=== PATIENT | female | born 1980 | race Caucasian/White ===

== ENCOUNTER → 2019-08-06 11:02 | Outpatient (CLI) | payer OTHER, SELFPAY ==
--- NOTE | ~2019-08-06 | DEXA_ITS ---
Bone Density Report Name: Anh Hair Age: 39 Sex: Female Ethnicity: White Date of : 1980 Indication: postmenopausal; hysterectomy; Referring Provider: Yariel, Behzad Torrez Study: Bone densitometry was performed. Exam Date: August 06, 2019 Accession number: [id number] Bone Density: Region BMD T-score Z-score Classification AP Spine (L1-L4) 0.797 -2.3 -2.1 Osteopenia Femoral Neck (Left) 0.649 -1.8 -1.5 Osteopenia Total Hip (Left) 0.621 -2.6 -2.5 Osteoporosis Femoral Neck (Right) 0.622 -2.0 -1.8 Osteopenia Total Hip (Right) 0.654 -2.4 -2.2 Osteopenia Total Hip Mean 0.638 -2.5 -2.4 Osteoporosis World Health Organization criteria for BMD impression classify patients as: Normal (T-score at or above -1.0), Osteopenia (T-score between -1.0 and -2.5), or Osteoporosis (T-score at or below -2.5). 10-year Fracture Risk: FRAX not reported because: Some T-score for Spine Total or Hip Total or Femoral Neck at or below -2.5 Clinical Information Provided by Patient: Has used the following medications: Vitamin D, Calcium, MTV Has the following medical conditions: Hysterectomy, RECENT STRESS FRACTURE OF FOOT, IBS BUT NO MEDS Patient maximum height was 67 Menopause Age: 31 Does not regularly consume dairy products Drinks caffeinated beverages Onset of menses at age 10 Number of children 1 Impression: The patient has osteoporosis, based on the Left Total Hip T-score. Discussion: HIGH RISK OF FRACTURE. BONE DENSITY IS UNDESIRABLY LOW AT ONE OR MORE SKELETAL SITES, CONSISTENT WITH OSTEOPOROSIS. ALSO, BONE DENSITY IS LOWER THAN EXPECTED FOR AGE AND SEX AT ONE OR MORE SKELETAL SITES; RECOMMEND A DILIGENT SEARCH FOR SECONDARY CAUSES OF BONE LOSS. This patient's lowest T-score meets the World Health Organization's (WHO) criteria for osteoporosis at one or more sites (T-score -2.5 or below). In untreated patients, the risk of osteoporotic fracture increases approximately two-fold for each 1.0 SD decrease in T-score. Low bone density is not the only risk factor for fracture; also consider factors such as patient's age, frailty or poor health, risk of falling, risk of injury, previous osteoporotic fracture, family history of osteoporosis, cigarette smoking, low body weight, etc. Not everyone with low bone mineral density has osteoporosis; osteomalacia and other metabolic bone disorders should also be considered. Patients who have osteoporosis should be evaluated for specific diseases and conditions (secondary causes) that may cause or contribute to bone loss. The [place] [employer] (AACE) and National Osteoporosis Foundation (NOF) recommend pharmacologic intervention for all postmenopausal women whose T-score is in this range. Also, this patient's bone mineral density is below the range consider
== END ==
PROVIDERS: PCP Chiropractor; Visit Provider Chiropractor
DX: M81.0 Age-related osteoporosis without current pathological fracture (principal); M85.89 Other specified disorders of bone density and structure, multiple sites
CPT/HCPCS: 77080

== ENCOUNTER → 2019-08-17 08:03 | Outpatient (CLI) | payer OTHER, SELFPAY ==
--- NOTE | ~2019-08-17 | MR_ITS ---
EXAMINATION: MR foot LT wo con DATE: 08/17/2019 08:40 INDICATION: Dorsal left forefoot pain 13 weeks post third metatarsal fracture. TECHNIQUE: Magnetic resonance imaging (MRI) of the left fore/mid foot was performed without intraveno us contrast. Sequences included sagittal T1-weighted FSE, sagittal fluid sensitive FSE STIR, coronal PD-weighted FS FSE, coronal T1-weighted FSE, axial PD-weighted FS FSE, and axial PD-weighted FSE. COMPARISON: None FINDINGS: There are few foci is metal susceptibility artifact near the neck of the fifth metatarsal consistent with prior surgery. The neck of the fifth metatarsal is angulated medially with normal marrow signal consistent with an old healed fracture deformity. Suggestion of mild secondary osteoarthritis at the fifth metatarsophalangeal joint with mild joint space narrowing. Mild hallux valgus with mild to moderate osteoarthritis at the first metatarsophalangeal joint with n onuniform joint space narrowing, marginal osteophytes and mild subarticular edema at the head of the first metatarsal and lateral base of the first proximal phalanx. Additional small foci of susceptibil ity artifact associated with a bunionectomy with osteotomy resulting in flattening along the medial h ead of the first metatarsal. Prominent nonspecific marrow edema at the head of the third metatarsal. There is curvilinear low sign al underlying the cortex along small region of the dorsal and medial aspect of the third metatarsal h ead with differential including erosions or osteonecrosis. No evident linear fracture line. Heterogen eous high signal intensity in the dorsal margin of the head of the third metatarsal suggestive of syn ovitis in the dorsal recess of the joint space. There also appears to be mild joint space narrowing a t the third metatarsophalangeal joint relative to the adjacent second and fourth metatarsophalangeal joints. There is a small focus of mild increased fluid signal at the mid diaphysis of the fourth metatarsal w ith only negligible decrease T1 signal which still remains significantly hyperintense to skeletal mus rabia which could represent either edema related to stress reaction or small focus of red marrow. No crespo rrounding periostitis to more specifically suggest stress reaction. The intrinsic musculature of the foot as well as the flexor and extensor tendons are normal. The Lisf ranc ligament as well as the collateral ligament complexes at the metatarsophalangeal and interphalan geal joints are normal. No joint effusions, bursitis or other abnormal fluid collections. IMPRESSION: 1. Nonspecific marrow edema at the head of the third metatarsal without evident fracture line and wit h suggestion of synovitis at the dorsal recess of the third metatarsophalangeal joint space. Differen tial includes stress reaction or reactive edema related to either osteonecrosis or inflammatory arthr itis with erosions such as in the setting of gout. 2. Postoperative changes at the neck of the fifth metatarsal where there appears be an old healed fra cture deformity and at the head of the first metatarsal likely for bunionectomy. 3. Nonspecific small focus of increased marrow signal at the mid diaphysis of the fourth metacarpal b ut without significant T1 fat signal loss which could represent red marrow or stress reaction. Absenc e of surrounding periostitis however reduces suspicion for the latter. Reviewed, dictated and finalized at location A. R'S TENDER IMPRESSION: 1. Nonspecific marrow edema at the head of the third metatarsal without evident fracture line and with suggestion of synovitis at the dorsal recess of the thi rd metatarsophalangeal joint space. Differential includes stress reaction or re active edema related to either osteonecrosis or inf
== END ==
PROVIDERS: Visit Provider Podiatrist Foot & Ankle Surgery
DX: S92.335D Nondisplaced fracture of third metatarsal bone, left foot, subsequent encounter for fracture with routine healing (principal); X58.XXXD Exposure to other specified factors, subsequent encounter
CPT/HCPCS: 73718

== ENCOUNTER → 2020-03-01 11:10 | Outpatient (CLI) | payer OTHER, SELFPAY ==
--- NOTE | ~2020-03-01 | XR_ITS ---
EXAMINATION: XR chest 2V 03/01/2020 11:29 INDICATION: Chest pain and shortness of breath PROCEDURE: 2 view chest COMPARISON: No prior studies for comparison. FINDINGS: The lungs are clear. The cardiomediastinal silhouette is within normal limits. There are no pleural effusions. There is no pneumothorax suspected. IMPRESSION: 1: NO ACUTE CARDIOPULMONARY DISEASE. Reviewed, dictated and finalized at location B.
== END ==
PROVIDERS: PCP Chiropractor; Visit Provider Chiropractor
DX: R06.02 Shortness of breath (principal); R07.9 Chest pain, unspecified
CPT/HCPCS: 71046

== ENCOUNTER → 2020-08-10 11:23 | Outpatient (CLI) | payer OTHER, SELFPAY ==
--- NOTE | ~2020-08-10 | XR_ITS ---
EXAMINATION: XR knee RT min 4V EXAM DATE: 08/10/2020 12:17 INDICATION: Bilateral hand, wrist, knee, foot pain. TECHNIQUE: Right knee lateral, frontal AP, frontal PA tunnel, sunrise projections. There is no prior study for comparison. FINDINGS: No evidence osteochondral defect or joint body in the right knee joint. No joint effusio n. Joint space is maintained, no bony productive changes or chondrocalcinosis. There are no acute fra ctures or dislocations identified. There is no subcutaneous gas. The soft tissue is unremarkable. There are no radiopaque foreign bodies. IMPRESSION: 1. Unremarkable XR knee RT min 4V exam. Reviewed, dictated and finalized at location B. ORICAL ARCHEOLOGIST
--- NOTE | ~2020-08-10 | XR_ITS ---
EXAMINATION: XR knee LT min 4V EXAM DATE: 08/10/2020 12:17 INDICATION: Bilateral hand, wrist, knee, foot pain . No known recent injury. TECHNIQUE: Left knee lateral, frontal AP, frontal PA tunnel, sunrise projections. There is no prior study for comparison. FINDINGS: No evidence osteochondral defect or joint body in the left knee joint. Joint spaces are uniform, no bony productive changes. No joint effusion. There are no acute fractures or dislocations identified. There is no subcutaneous gas. The soft tissue is unremarkable. There are no radiopaqu e foreign bodies. IMPRESSION: 1. Unremarkable XR knee LT min 4V exam. Reviewed, dictated and finalized at location B. HANDLER
--- NOTE | ~2020-08-10 | XR_ITS ---
EXAMINATION: XR foot RT min 3V EXAM DATE: 08/10/2020 12:17 INDICATION: Bilateral foot pain. TECHNIQUE: Right foot dorsoplantar, lateral and oblique projections obtained and reviewed. There is no prior study for comparison. FINDINGS: Right metatarsal bones unremarkable. There is mild 1st metatarsophalangeal joint primary o steoarthritis. There are no bony erosions identified. There are no acute fractures or dislocations i dentified. There is no subcutaneous gas. The soft tissue is unremarkable. There are no radiopaque foreign bodies. 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 Reviewed, dictated and finalized at location B. R WAXER
--- NOTE | ~2020-08-10 | XR_ITS ---
EXAMINATION: XR hand RT min 3V, XR wrist RT min 3V EXAM DATE: 08/10/2020 12:17 INDICATION: Bilateral hand, wrist, knee, foot pain. No reported recent injury. TECHNIQUE: Right hand frontal, lateral and oblique projections obtained and reviewed. Right wrist fro ntal, frontal with ulnar deviation, oblique and lateral projections obtained and reviewed. There is no prior study for comparison. FINDINGS: Right metacarpal bones are unremarkable. Right wrist scapholunate joint space is maintain ed. There are no bony erosions identified. The joint spaces are uniform. There are no acute fractures or dislocations identified. There is no subcutaneous gas. The soft tissue is unremarkable. There are no radiopaque foreign bodies. IMPRESSION: Unremarkable right hand, wrist exam. Reviewed, dictated and finalized at location B. TING OPERATOR IMPRESSION: Unremarkable right hand, wrist exam.
--- NOTE | ~2020-08-10 | XR_ITS ---
EXAMINATION: XR foot LT min 3V EXAM DATE: 08/10/2020 12:17 INDICATION: Bilateral foot pain. TECHNIQUE: Left foot dorsoplantar, lateral and oblique projections obtained and reviewed. Correlation is made to contralateral foot same date. FINDINGS: Left 1st metatarsal head appearance consistent with history of bunionectomy. There may also be surgical change at the 5th metatarsal neck. Correlate with prior history. There is mild 1st metat arsophalangeal joint primary osteoarthritis. There are no acute fractures or dislocations identified. There is no subcutaneous gas. The soft tissue is unremarkable. There are no radiopaque foreign b odies. IMPRESSION: 1. Mild left 1st MTP osteoarthritis. 2. Surgical changes. Reviewed, dictated and finalized at location B. MING PRESS OPERATOR
--- NOTE | ~2020-08-10 | XR_ITS ---
EXAMINATION: XR hand LT min 3V, XR wrist LT min 3V EXAM DATE: 08/10/2020 12:17 INDICATION: Bilateral hand, wrist, knee, foot pain. TECHNIQUE: Left hand frontal, lateral and oblique projections obtained and reviewed. Left wrist fron tae, frontal with ulnar deviation, oblique and lateral projections obtained and reviewed. Correlation is made to contralateral hand same date. FINDINGS: Left metacarpal bones are unremarkable. Left wrist scapholunate joint space is maintained . There are no bony erosions identified. The joint spaces are uniform. No bony productive changes. T here are no acute fractures or dislocations identified. There is no subcutaneous gas. The soft tiss ue is unremarkable. There are no radiopaque foreign bodies. IMPRESSION: 1. Unremarkable left hand, wrist exam. Reviewed, dictated and finalized at location B. OMS COMPLIANCE DIRECTOR IMPRESSION: 1. Unremarkable left hand, wrist exam.
== END ==
PROVIDERS: PCP Chiropractor; Visit Provider Chiropractor
DX: M19.072 Primary osteoarthritis, left ankle and foot (principal); M19.071 Primary osteoarthritis, right ankle and foot; Z98.890 Other specified postprocedural states
CPT/HCPCS: 73110; 73130; 73564; 73630

== ENCOUNTER → 2021-11-21 13:12 | Outpatient (CLI) | payer OTHER, SELFPAY ==
--- NOTE | ~2021-11-21 | MM_ITS ---
EXAMINATION: MM screening enrico BI w shant HISTORY: Baseline screening mammogram TECHNIQUE: Craniocaudal and mediolateral oblique 3-D tomosynthesis images were obtained and synthetic 2-D images were generated. CAD analysis was submitted and interpreted. COMPARISON: None, baseline BREAST PARENCHYMAL COMPOSITION: The breasts are heterogeneously dense, which may obscure small masses . FINDINGS: RIGHT BREAST: There is no suspicious mass, calcification, or architectural distortion to suggest davey gnancy. LEFT BREAST: There are grouped calcifications in the middle third of the breast 5 cm from the nipple. IMPRESSION: 1. Left breast calcifications 2. Magnification views are recommended. BI-RADS Category 0: Incomplete: Needs additional imaging evaluation. Reviewed, dictated and finalized at location A.
== END ==
PROVIDERS: PCP Chiropractor
DX: Z12.31 Encounter for screening mammogram for malignant neoplasm of breast (principal); R92.8 Other abnormal and inconclusive findings on diagnostic imaging of breast
CPT/HCPCS: 77063; 77067

== ENCOUNTER → 2021-12-06 07:58 | Outpatient (CLI) | payer OTHER, SELFPAY ==
--- NOTE | ~2021-12-06 | MMUS_ITS ---
EXAMINATION: MM diagnostic mammo unilat LT, US breast LT limited HISTORY: Grouped microcalcifications in middle third of breast 5 cm from nipple reported on 11/21/2021 screening mammogram TECHNIQUE: ML view. Magnification ML, MLO and CC views.. CAD analysis was submitted and interpreted. High resolution left upper outer quadrant breast ultrasound was performed. COMPARISON: 11/21/2021 bilateral screening mammogram FINDINGS: MAMMOGRAPHIC FINDINGS: There is a cluster of grouped microcalcifications in the inner aspect of the upper outer quadrant of the left breast. These have a granular appearance. ULTRASOUND: 1:00 5 cm from nipple: Antiparallel irregular hypoechoic up to 5.5 mm wide 6.2 mm deep mass with post erior shadowing is noted, with some internal vascularity on color flow imaging. This is very suspicio us for breast carcinoma and corresponds approximately to position of the granular grouped microcalcif ications noted mammographically. Ultrasound-guided biopsy is recommended. The postultrasound-guided b iopsy mammogram should be reviewed to confirm that the sonographic lesion corresponds to the microcal cifications. (If not, then stereotactic biopsy should be performed.) IMPRESSION: 1. Suspicious grouped granular microcalcifications and corresponding irregular hypoechoic up to 6.2 m m posteriorly shadowing mass of left breast at 1:00 5 cm from nipple 2. Ultrasound-guided biopsy of left 1:00 lesion is recommended BI-RADS category 4, suspicious findings. Reviewed, dictated and finalized at location A. IMPRESSION: 1. Suspicious grouped granular microcalcifications and corresponding irregular hypoechoic up to 6.2 mm posteriorly shadowing mass of left breast at 1:00 5 cm from nipple 2. Ultrasound-guided biopsy of left 1:00 lesion is recommended BI-RADS category 4, suspicious findings.
== END ==
PROVIDERS: PCP Chiropractor
DX: R92.1 Mammographic calcification found on diagnostic imaging of breast (principal); N63.21 Unspecified lump in the left breast, upper outer quadrant
CPT/HCPCS: 76642; 77065

== ENCOUNTER 2021-12-24 12:27 | Outpatient (CLI) | payer OTHER, SELFPAY ==
--- NOTE | ~2021-12-24 | MMUS_ITS ---
EXAMINATION: US breast biopsy LT w image, MM post biopsy invasive LT DATE: 12/24/2021 14:43 (accession [id number]), 12/24/2021 14:39 (accession [id number]) INDICATION: Indeterminate mass in the upper outer quadrant of the left breast Ultrasound-guided core biopsy is requested to evaluate for malignancy. TECHNIQUE AND FINDINGS: The risks and potential benefits of the procedure were discussed with the patient including bleeding and infection. A time out was performed. The skin of the left breast was prepared and draped in usual sterile fashion. 1% lidocaine was used for superficial anesthesia. 1% lidocaine with epinephrine was used for deep anesthesia. A vacuum-assisted biopsy gun needle was advanced through to the outer edge of the region of interest from a lateral approach utilizing sonographic guidance. A total of seven tissue core samples were obt ained through the lesion. A tissue marker clip was then placed at the biopsy site. Hemostasis was ach ieved. A sterile bandage was applied. The patient tolerated procedure well and there was no evidence of immediate complication. The patient was given verbal instructions to return to the Emergency Department in the event of severe breast pa in or rapid breast enlargement. A two view left breast mammogram was obtained to document tissue shane er clip placement. IMPRESSION: 1. Successful ultrasound-guided vacuum-assisted biopsy of left breast mass with tissue marker placeme nt. The biopsy marker is approximately 2 cm superolateral to a group of indeterminate calcifications. Marker migration is possible. Final management recommendation will be made after pathology results. Reviewed, dictated and finalized at location A. IMPRESSION: 1. Successful ultrasound-guided vacuum-assisted biopsy of left breast mass with tissue marker placement. The biopsy marker is approximately 2 cm superolateral to a group of indeterminate calcifications. Marker migration is possible. Disha rashad management recommendation will be made after pathology results. IMPRESSION: 1. Successful ultrasound-guided vacuum-assisted biopsy of left breast mass with tissue marker placement. The biopsy marker is approximately 2 cm superolateral to a group of indeterminate calcifications. Marker migration is possible. Disha l management recommendation will be made after pathology results.
== END 2021-12-24 12:28 | disposition home or self-care (01) ==
PROVIDERS: PCP Registered Nurse
DX: R92.8 Other abnormal and inconclusive findings on diagnostic imaging of breast (principal)
CPT/HCPCS: 19083; 88305; A4648